=== PATIENT | female | born 1970 | race Caucasian/White ===

== ENCOUNTER → 2017-10-19 | Outpatient (CLI) | payer OTHER ==
[~2017-10-19] VITALS: Ht 154.9 cm; Wt 64.9 kg
[~2017-10-19] MED LIST: ASPIR-LOW81 MG PO; HYDROCHLOROTH12.5 M3; HYDROCHLOROTHIA25 MG PO; MICROZIDE12.5 M1 PO; MIRALAX119 GM PO; NEXIUM40 MG; NEXIUM40 MG PO; PAROXETINE HCL10 MG; PRAVASTATIN SOD40 MG; VENOFER100 MG/5 M IV
== END | disposition home or self-care (01) ==
LOC: AMB 06:38
DX: Z12.11 Encounter for screening for malignant neoplasm of colon (principal); Z80.0 Family history of malignant neoplasm of digestive organs; D64.9 Anemia, unspecified; K21.9 Gastro-esophageal reflux disease without esophagitis; I10 Essential (primary) hypertension; Z87.891 Personal history of nicotine dependence
CPT/HCPCS: 88305; 88342 TC; 93005; J2250